=== PATIENT | female | born 1950 | race Caucasian/White ===

== ENCOUNTER → 2016-11-18 | Outpatient (CLI) | payer BC | LOC: KOH-I 11:20 | DX: M25.512 Pain in left shoulder (principal) | CPT/HCPCS: 73030 ==

== ENCOUNTER 2021-07-19 15:39 | Emergency (ER) | payer OTHER ==
[2021-07-19] MEDS ORDERED: IBUPROFEN600 MG PO (19:31)
== END 2021-07-19 19:45 | disposition home or self-care (01) ==
LOC: ER1 15:39
DX: I48.91 Unspecified atrial fibrillation (principal); I10 Essential (primary) hypertension
CPT/HCPCS: 29125; 73090; 73100; 99284